=== PATIENT | male | born 1960 | race Caucasian/White ===

== ENCOUNTER 2019-05-28 12:00 | Emergency (ER) | payer OTHER, SELFPAY ==
--- NOTE | ~2019-05-28 | XR_ITS ---
EXAMINATION: XR chest 2V DATE: 05/28/2019 13:20 INDICATION: Chest pain, shortness of breath and dizziness TECHNIQUE: frontal and lateral views of the chest were obtained. COMPARISON: None FINDINGS: The lungs are clear with no focal airspace opacities, pulmonary edema, pleural effusion or pneumothor ax. The cardiomediastinal silhouette is normal. Mild thoracic spondylosis. IMPRESSION: 1. No acute cardiopulmonary disease. Reviewed, dictated and finalized at location A. DOWN MATCHER
[2019-05-28 12:31] VITALS: BP 149/99; PULSE 100; RESP 22; TEMP 36.5; O2SAT 99
--- NOTE | 2019-05-28 12:43 | ECG_ITS ---
Measurements Intervals [place] Rate: 97 P: 65 HI: 156 QRS: 57 QRSD: 84 T: 54 QT: 354 QTc: 451 Interpretive Statements SINUS RHYTHM VOLTAGE CRITERIA FOR LVH MINIMAL Q WAVES- ANTEROLATERAL LEADS BORDERLINE ECG Electronically Signed On 05-28-2019 14:52:06 CUPOLA HOIST OPERATOR by Alphonso Cagle D.O.
--- NOTE | 2019-05-28 12:58 | ED.SYNCOPE ---
HPI - Syncope General Chief Complaint: Syncope Stated Complaint: dizzy/syncopal episode Time Seen by Provider: 05/28/19 12:50 Source: patient Mode of arrival: ambulatory Limitations: no limitations History of Present Illness HPI narrative: A 58 y/o male pt presents to the ED, with c/o near syncopal episode x2 that occurred twice today. Pt states that he was leaving the gym today at 930AM when he bent his neck backwards he notes having a hot flash, dry mouth, nauseous, blurry vision, seeing dark and red spots and felt like he was going to pass out. He states another episode happened again when leaving his bathroom at home. Pt notes pain, pressure and swelling to the back of his neck that worsens when he tilts his head backwards, and states that he thinks this is what brings on the near syncopal episodes. He notes having a similar episode to this 2 years ago, but is unsure of the Dx. Pt also notes a TYSON x 2 weeks and swelling and pain that he describes as soreness to his lt chest, and LUE. He denies cough, congestion, fever, V/D, or change in appetite. Pt notes that he was Dx with a compression fracture x 2 months ago. He also notes a PMHx of COPD, and emphysema. He notes an allergy to Meloxicam. complaint: almost passed out Onset (ago): hour(s) (3) Witnessed: Yes - by Bystander Context: other (tilting head backwards) Current symptoms: headache and other (swelling, pain, pressure to back of neck) Related Data Allergies Allergy/AdvReac Type Severity Reaction Status Date / Time No Known Allergies Allergy Verified 08/10/16 13:20 Review of Systems Review of Systems: All systems reviewed & are unremarkable except as noted in HPI and below Constitutional: Constitutional: Denies fever(s), Reports headache(s) (x 2 weeks) and Reports other (hot flash during episode) Eyes: Eyes: Reports blurry vision (during episode) and Reports spots in vision (during episode) ENT: Reports dry mouth (during episode) Cardiovascular: Cardiovascular: Reports chest pain (lt chest soreness) Respiratory: Respiratory: Denies chest congestion and Denies cough Gastrointestinal: Gastrointestinal: Denies diarrhea, Reports nausea (during episode), Denies vomiting and Denies other (change in appetite) Musculoskeletal: Musculoskeletal: Reports neck pain (pain, pressure, swelling to back of neck) and Reports other (soreness to LUE) Neurologic: Reports other (near syncopal episode) [facility] Past Medical History Medical History (Updated 05/28/19 @ 15:57 by Alexx Weiss Streetcar) Hypertension Melanoma Surgical History Surgical History (Updated 05/28/19 @ 15:57 by Alexx [address]) History of neck surgery Social History Social History (Updated 05/28/19 @ 15:57 by Alexx [address]) Smoking status: Smoker, status unknown Tobacco type: cigarettes Exam Const: General: healthy appearing, no acute distress and alert Orientation/consciousness: patient oriented x3 HENMT: Mouth: Yes dry mucous membranes Resp: Effort & Inspection: normal respiratory effort Auscultation: clear to auscultation bilaterally Cardio: Rate: tachycardic Rhythm: regular rhythm GI: Other: NDNT Back/Spine/Pelvis: Thoracic/Lumbar Spine: other (tenderness and spasm in right trapezius) Skin: General skin exam: normal color Rashes: no rashes Neuro: General: patient oriented x3, moves all extremities and no focal motor deficits Speech: normal speech Extrem: General: no edema Psych: Affect: Anxious affect present Course Vital Signs Vital signs: Vital Signs Temperature 36.5 C 05/28/19 12:31 Pulse Rate 100 05/28/19 12:31 Respiratory Rate 22 H 05/28/19 12:31 Blood Pressure 149/99 H 05/28/19 12:31 Pulse Oximetry 99 05/28/19 12:31 Temperature 36.5 C 05/28/19 12:31 Pulse Rate 79 05/28/19 15:48 Respiratory Rate 17 05/28/19 15:48 Blood Pressure 142/79 H 05/28/19 15:48 Pulse Oximetry 100 05/28/19 15:48 Procedures Other Pr
[2019-05-28 13:11] LABS: Basophils Percent Auto 0.3 % (0.2-1.2); Eosinophils Percent Auto 0.6 % (0-4.4); Hematocrit 42.5 % (42.0-52.0); Hemoglobin 14.5 g/dL (14.0-18.0); Immature Granulocyte Absolute 0.02 K/mm3 (0.00-0.031); Immature Granulocyte Percent A 0.3 % (0-0.5); Lymphocytes Absolute Auto 1.01 K/mm3 (0.9-3.2); Lymphocytes Percent Auto 14.5 % (18.3-44.2); Mean Corpuscular HGB Conc 34.1 g/dl (32-36); Mean Corpuscular Hemoglobin 29.1 pg (26-34); Mean Corpuscular Volume 85.2 fl (80-100); Mean Platelet Volume 9.4 fl (7.4-10.4); Monocytes Absolute Auto 0.6 K/mm3 (0.1-0.6); Monocytes Percent Auto 9.1 % (2.6-8.5); Neutrophils Absolute Auto 5.2 K/mm3 (1.3-6.7); Neutrophils Percent Auto 75.2 % (45.5-73.1); Platelet Count Result 323 k/mm3 (150-375); Red Blood Count 4.99 M/mm3 (4.6-6.20); Red Cell Distribution Width 12.7 % (11.5-14.5)
[2019-05-28 13:21] LABS: INR 0.9; Prothrombin Time 11.9 Seconds (11.1-14.7)
[2019-05-28 13:22] LABS: Partial Thromboplastin Time 25.5 SECONDS (22.3-36.8)
[2019-05-28 13:27] LABS: Blood Urea Nitrogen 8 mg/dL (9-20); Calcium 9.5 mg/dL (8.4-10.2); Carbon Dioxide 24 mmol/L (22-30); Chloride 94 mmol/L (98-107); Estimated CRCL calculation 110 ml/min; Estimated Glomerular Filt Rate > 60; Glucose 117 mg/dL (75-110); Potassium 3.8 mmol/L (3.4-5.0); Sodium 131 mmol/L (137-145)
[2019-05-28 13:49] LABS: Troponin I < 0.012 ng/mL (0.000-0.034)
[2019-05-28 13:52] VITALS: BP 134/86; PULSE 103
[2019-05-28 13:53] VITALS: BP 134/96; PULSE 105
[2019-05-28 13:54] VITALS: BP 142/95; PULSE 115
[2019-05-28] MEDS: SODIUM CHLORIDE 0.9% IV 1,000 ML 999 ML IV CONT (13:57)
[2019-05-28] MEDS: LIDOCAINE HCL 1% LOCAL INJ 20 ML VIAL 3 ML INFILTRATE (15:11)
[2019-05-28] MEDS: TRIAMCINOLONE ACET INJ 40 MG/ML VIAL IM (15:11)
--- NOTE | 2019-05-28 15:11 | PC.NURSE ---
Kenalog [address] Medellin into upper middle back just inferior to neck after injection of Lidocaine. No complications noted during or after injections.
[2019-05-28 15:48] VITALS: BP 142/79; PULSE 79; RESP 17; O2SAT 100
== END 2019-05-28 15:49 | disposition home or self-care (01) ==
PROVIDERS: Emergency Medicine; Emergency Provider Emergency Medicine; PCP Family Medicine
DX: R55 Syncope and collapse (principal); E86.0 Dehydration; M54.2 Cervicalgia
CPT/HCPCS: 20552; 36415; 71046; 80048; 84484; 85025; 85610; 85730; 93005; 96361; 96372; 96374; 99284; J3301; J3360; J7030

== ENCOUNTER 2020-04-07 12:05 | Emergency (ER) | payer OTHER, SELFPAY ==
--- NOTE | ~2020-04-07 | XR_ITS ---
EXAMINATION: XR chest 2V DATE: 04/07/2020 12:56 INDICATION: Chest pain. TECHNIQUE: Frontal and lateral views of the chest were obtained. COMPARISON: Chest 2 views 05/28/2019 FINDINGS: The chest demonstrates clear lungs without pneumonia, pleural effusion, or pneumothorax. Th e heart size is normal. IMPRESSION: 1. No acute cardiopulmonary disease. Reviewed, dictated and finalized at location A. PMENT OPERATOR
--- NOTE | ~2020-04-07 | CT_ITS ---
EXAMINATION: CTA chest PE protocol DATE: 04/07/2020 15:11 INDICATION: Chest pain. Dyspnea. TECHNIQUE: Computed tomography angiography (CTA) of the chest was performed with 100 mL Omnipaque-350 intravenous contrast timed to evaluate the pulmonary arteries. Coronal maximum intensity projection 3D-reconstructions were created by the technologist. Automated exposure control and iterative reconst ruction technique were employed. The dose-length product was 558.01 mGy-cm. COMPARISON: Chest 2 views 04/07/2020 FINDINGS: There is moderate emphysema. There is mild dependent atelectasis bilaterally. There are tra ce pleural effusions. The heart size is normal. No pericardial effusion. There is no pulmonary embolu s. There is diffuse hepatic steatosis. There is mild thoracic spondylosis. There is mild chronic heig ht loss of multiple lower thoracic vertebral bodies. IMPRESSION: 1. No pulmonary embolus. 2. Moderate emphysema. 3. Diffuse hepatic steatosis. Reviewed, dictated and finalized at location A. PROTECTOR
--- NOTE | 2020-04-07 12:08 | ECG_ITS ---
Measurements Intervals [place] Rate: 67 P: 67 TX: 146 QRS: 62 QRSD: 90 T: 63 QT: 356 QTc: 378 Interpretive Statements SINUS RHYTHM WITH SINUS ARRHYTHMIA PEAKED T WAVES- CONSIDER HYPERKALEMIA OR ISCHEMIA BASELINE ARTIFACT- I, AVR, AVL ABNORMAL ECG Electronically Signed On 04-07-2020 14:36:27 CLOTHING BUSHELER by Alphonso Cagle D.O.
[2020-04-07 12:10] VITALS: BP 125/84; PULSE 72; RESP 18; TEMP 36.4; O2SAT 100
[2020-04-07 12:28] LABS: Basophils Absolute Auto 0.1 K/mm3 (0.0-0.1); Basophils Percent Auto 0.9 % (0.2-1.2); Eosinophils Absolute Auto 0.2 K/mm3 (0-0.3); Eosinophils Percent Auto 2.9 % (0-4.4); Hematocrit 44.9 % (42.0-52.0); Hemoglobin 15.3 g/dL (14.0-18.0); Immature Granulocyte Absolute 0.02 K/mm3 (0.00-0.031); Immature Granulocyte Percent A 0.4 % (0-0.5); Lymphocytes Absolute Auto 1.32 K/mm3 (0.9-3.2); Lymphocytes Percent Auto 23.8 % (18.3-44.2); Mean Corpuscular HGB Conc 34.1 g/dl (32-36); Mean Corpuscular Hemoglobin 30.2 pg (26-34); Mean Corpuscular Volume 88.6 fl (80-100); Mean Platelet Volume 10.2 fl (7.4-10.4); Monocytes Absolute Auto 0.5 K/mm3 (0.1-0.6); Monocytes Percent Auto 8.1 % (2.6-8.5); Neutrophils Absolute Auto 3.6 K/mm3 (1.3-6.7); Neutrophils Percent Auto 63.9 % (45.5-73.1); Platelet Count Result 302 k/mm3 (150-375); Red Blood Count 5.07 M/mm3 (4.6-6.20); Red Cell Distribution Width 13.1 % (11.5-14.5); White Blood Count 5.6 K/mm3 (4.5-10.0)
[2020-04-07 12:39] LABS: Anion Gap 4 mmol/L (8-16); Blood Urea Nitrogen 18 mg/dL (9-20); Calcium 9.2 mg/dL (8.4-10.2); Carbon Dioxide 31 mmol/L (22-30); Chloride 102 mmol/L (98-107); Estimated CRCL calculation 86 ml/min; Estimated Glomerular Filt Rate > 60; Glucose 102 mg/dL (75-110); Potassium 4.2 mmol/L (3.4-5.0); Sodium 137 mmol/L (137-145)
[2020-04-07 12:40] LABS: INR 0.9; Prothrombin Time 12.8 Seconds (11.1-14.7)
[2020-04-07 12:41] LABS: Partial Thromboplastin Time 22.5 SECONDS (22.3-36.8)
[2020-04-07 12:52] LABS: Troponin I < 0.012 ng/mL (0.000-0.034)
[2020-04-07 13:29] VITALS: BP 132/78; PULSE 77; O2SAT 98
[2020-04-07] MEDS: ASPIRIN 81 MG CHEWABLE TABLET 324 MG PO (13:39)
[2020-04-07] MEDS: SODIUM CHLORIDE 0.9% IV 1,000 ML 999 ML IV CONT (14:12)
[2020-04-07 14:50] LABS: D Dimer 0.53 ug/mL (<0.48)
[2020-04-07 15:50] VITALS: PULSE 60; RESP 18
[2020-04-07] MEDS: IPRATROPIUM BR 0.02% INH SOLN 0.5 MG/2.5 ML VIAL INHALATION (15:50)
[2020-04-07] MEDS: ALBUTEROL SULFATE NEB 2.5 MG/0.5 ML INH 5 MG INHALATION (15:50)
[2020-04-07 15:55] LABS: Troponin I < 0.012 ng/mL (0.000-0.034)
[2020-04-07 15:57] VITALS: PULSE 73; RESP 18
--- NOTE | 2020-04-07 16:10 | ED.CHESTPAIN ---
HPI - Chest Pain General Chief Complaint: Chest Pain Stated Complaint: sob/palpitations Time Seen by Provider: 04/07/20 13:41 Source: RN notes reviewed History of Present Illness HPI narrative: Patient presents to emergency department from home for heart palpitations. Patient states symptoms been ongoing for the past 2 days. States at times it feels like his heart is working too hard and will pump harder at times he also notes intermittent feelings of shortness of breath he denies any fevers or chills chest pain abdominal pain nausea vomiting or any other symptoms. He states that his Adderall was just increased 3 days ago and the symptoms began the day after his Adderall was increased Related Data Home Medications Medication Instructions Recorded Confirmed albuterol sulfate 1 puff INHALATION QID 04/07/20 dextroamphetamine-amphetamine 30 mg PO DAILY 04/07/20 [Adderall] diclofenac sodium 75 mg PO BID 04/07/20 fluticasone propion-salmeterol 1 inh INHALATION BID 04/07/20 omeprazole 40 mg PO DAILY 04/07/20 tamsulosin [Flomax] 0.8 mg PO DAILY 04/07/20 Allergies Allergy/AdvReac Type Severity Reaction Status Date / Time meloxicam AdvReac Hallucinati Verified 04/07/20 12:15 ng Review of Systems Review of Systems: Narrative: Gen.: Denies fevers or chills Eyes: Denies eye pain or visual change ENT: Denies congestion Respiratory: Reports shortness of breath CV: See HPI GI: Denies abdominal pain nausea, emesis or diarrhea Musculoskeletal: Denies back pain or muscle pain Neuro: Denies numbness, tingling, weakness or focal weakness Skin: Denies rash Except as documented, all other systems reviewed and negative REPLACED BY [facility] Past Medical History Medical History Hypertension Melanoma Surgical History Surgical History (Updated 05/28/19 @ 15:57 by Alexx Weiss [facility]) History of neck surgery Social History Social History Smoking status: Smoker, status unknown Tobacco type: cigarettes Gender identity (if verbalized by the patient): Male Exam Narrative: Exam Narrative: APPEARANCE: No acute distress, nontoxic, resting in bed EYES: EOMI HEENT: Normocephalic, atraumatic, OMM RESPIRATORY: No respiratory distress Clear to auscultation bilaterally with no rhonchi wheezing or rales. CARDIOVASCULAR: Regular rate and rhythm without murmurs rubs or gallops. ABDOMINAL: Soft, nontender, nondistended, no rebound or guarding MUSCULOSKELETAl: Moves all extremities. No clubbing, cyanosis or edema. NEURO: Awake and alert. Following commands, speech normal, no focal deficits SKIN:: Warm, dry. No rashes lesions or abrasions PSYCHIATRIC: Normal affect/mood, Course Course Emergency Course: Patient states he does feel like shortness of breath is improved following breathing treatment. States he does have an inhaler at home for COPD Discussed with patient results of workup and diagnosis. Discussed need for follow-up with primary care, proper use of medication, and reasons to return to the emergency department. Patient understands and agrees to current treatment plan Vital Signs Vital signs: Vital Signs Temperature 97.5 F L 04/07/20 12:10 Pulse Rate 72 04/07/20 12:10 Respiratory Rate 18 04/07/20 12:10 Blood Pressure 125/84 04/07/20 12:10 Pulse Oximetry 100 04/07/20 12:10 Temperature 97.5 F L 04/07/20 12:10 Pulse Rate 73 04/07/20 15:57 Respiratory Rate 18 04/07/20 15:57 Blood Pressure 132/78 04/07/20 13:29 Pulse Oximetry 98 04/07/20 13:29 MDM - Chest Pain Lab Data Result diagrams: 04/07/20 12:17 04/07/20 12:17 Labs: Lab Results 04/07/20 04/07/20 04/07/20 Range/Units 12:16 12:17 12:17 WBC 5.6 (4.5-10.0) K/mm3 RBC 5.07 (4.6-6.20) M/mm3 Hgb 15.3 (14.0-18.0) g/dL Hct 44.9 (42.0-52.0) % MCV 88.6 (80-100) fl MCH
[2020-04-07 16:50] VITALS: BP 137/93; PULSE 69; RESP 18; O2SAT 100
== END 2020-04-07 16:52 | disposition home or self-care (01) ==
PROVIDERS: Emergency Provider Emergency Medicine; PCP Family Medicine
DX: R00.2 Palpitations (principal); I10 Essential (primary) hypertension; Z85.820 Personal history of malignant melanoma of skin; K76.0 Fatty (change of) liver, not elsewhere classified; J43.9 Emphysema, unspecified; R94.31 Abnormal electrocardiogram [ECG] [EKG]
CPT/HCPCS: 36415; 71046; 71275; 80048; 84484; 85025; 85380; 85610; 85730; 93005; 94640; 96360; 99284; A9270; J7030; Q9967

== ENCOUNTER 2022-05-18 14:43 | Emergency (ER) | payer OTHER, SELFPAY ==
[2022-05-18 14:57] VITALS: BP 133/84; PULSE 103; RESP 18; TEMP 36.8; O2SAT 99
--- NOTE | 2022-05-18 15:36 | ED.WOUNDLAC ---
HPI - Wound/Laceration General Chief Complaint: Wound/Laceration Stated Complaint: lt hand laceration Time Seen by Provider: 05/18/22 15:38 Source: patient Mode of arrival: ambulatory Limitations: no limitations History of Present Illness HPI narrative: Is a 61 year-old male who presents with laceration to left palm. Patient was handling a broken light bulb when shard of glass lacerated palm. States he took the glass out and held pressure on the wound. He then stated he let go and the wound started bleeding again. Denies any numbness or weakness to the hand and digits. Related Data Home Medications Medication Instructions Recorded Confirmed albuterol sulfate 90 mcg/actuation 1 puff inhalation QID 04/07/20 05/18/22 aerosol inhaler fluticasone 113mcg-salmeterol 1 inh inhalation BID 04/07/20 05/18/22 14mcg/actuation breath act,powder sensor omeprazole 40 mg capsule,delayed 40 mg PO DAILY 04/07/20 05/18/22 release tamsulosin 0.4 mg capsule (Flomax) 0.8 mg PO DAILY 04/07/20 05/18/22 Allergies Allergy/AdvReac Type Severity Reaction Status Date / Time meloxicam AdvReac Hallucinati Verified 04/07/20 12:15 ng Review of Systems Review of Systems: CONSTITUTIONAL: Denies malaise, chills, sweats, or fever. EYES: Denies visual changes, redness, or discharge. ENT: Denies rhinorrhea, congestion, sinus pain, otalgia or sore throat. CARDIOVASCULAR: Denies chest pain, palpitations, or edema. RESPIRATORY: Denies cough or dyspnea. SKIN: Denies rash or itching. Reports laceration to left palm MUSCULOSKELETAL: Denies back pain, joint pain, or myalgia. NEUROLOGIC: Denies numbness, weakness, or headache. All systems reviewed & are unremarkable except as noted in HPI and below PMFSH Past Medical History Medical History Hypertension Melanoma Surgical History Surgical History (Updated 05/28/19 @ 15:57 by Alexx Weiss [facility]) History of neck surgery Social History Social History Smoking status: Smoker, status unknown Tobacco type: cigarettes Gender identity (if verbalized by the patient): Male Comments At time of signature, agree with nursing past medical, surgical, social and family history. There is no relevant family history pertinent to the presenting complaint. Exam Narrative: GENERAL: Well-appearing, well-nourished, and in no acute distress. HEAD: Normocephalic, atraumatic. EYES: PERRLA, conjunctivae clear, and EOMI. ENT: Nares clear, no rhinorrhea or epistaxis. Mucous membranes moist. NECK: Supple. CHEST: No respiratory distress. Clear to auscultation. No bony deformities, no asymmetry. Speaks in full sentences. HEART: Regular rate and rhythm EXTREMITIES: Normal range of motion. No edema. Normal strength and sensation. SKIN: Warm, dry, no rash. 1 cm laceration into subcutaneous tissue to palmar aspect of left hand, no surrounding erythema, edema, induration. Capillary refill less than 2 seconds on fingers NEURO: Alert and oriented x3. No focal deficits. Course Course Emergency Course: Patient is aware of diagnosis, understands and agrees to treatment plan. Anticipatory guidance given. Patient agrees to follow-up as directed and is aware of reasons to seek care at the emergency department. Portions of this record may have been created with voice recognition software Level of Care: Express Care Visit Vital Signs Vital signs: Vital Signs Temperature 36.8 C 05/18/22 14:57 Pulse Rate 103 H 05/18/22 14:57 Respiratory Rate 18 05/18/22 14:57 Blood Pressure 133/84 05/18/22 14:57 Pulse Oximetry 99 05/18/22 14:57 Oxygen Delivery Room Air 05/18/22 14:57 Temperature 36.8 C 05/18/22 14:57 Pulse Rate 103 H 05/18/22 14:57 Respiratory Rate 18 05/18/22 14:57 Blood Pressure 133/84 05/18/22 14:57 Pulse Oximetry 99 05/18/22 14:57 Oxygen Deliver
[2022-05-18] MEDS: ACETAMINOPHEN 500 MG TABLET 1000 MG PO (15:43)
[2022-05-18] MEDS: LIDOCAINE, EPINEPHRINE, TETRACAINE VISCOUS SOLN 3 ML TOPICAL (15:44)
== END 2022-05-18 16:19 | disposition home or self-care (01) ==
PROVIDERS: Emergency Provider Nurse Practitioner Family; PCP Family Medicine
DX: S61.412A Laceration without foreign body of left hand, initial encounter (principal); W25.XXXA Contact with sharp glass, initial encounter; I10 Essential (primary) hypertension; Z85.820 Personal history of malignant melanoma of skin
CPT/HCPCS: 12001; 99212; A9270; G0463

== ENCOUNTER 2023-05-03 08:04 | Emergency (ER) | payer OTHER, SELFPAY ==
[2023-05-03 08:30] VITALS: BP 146/84; PULSE 95; RESP 18; TEMP 36.7; O2SAT 97
--- NOTE | 2023-05-03 08:41 | ED.URI ---
HPI - URI/Sore Throat General Chief Complaint: Upper Respiratory Infection Stated Complaint: rt earache,congestion Time Seen by Provider: 05/03/23 08:41 Source: patient, RN notes reviewed and old records reviewed Mode of arrival: ambulatory Limitations: no limitations History of Present Illness HPI Narrative: 62-year-old male presents to the [facility] with right ear pain, runny nose and sinus congestion for 3 days. Has taken Tylenol for his discomfort, no other treatment prior to arrival Denies fevers Denies any other symptoms Treatments prior to arrival: acetaminophen Related Data Home Medications Medication Instructions Recorded Confirmed albuterol sulfate 90 mcg/actuation 1 puff inhalation QID 04/07/20 05/03/23 aerosol inhaler fluticasone 113mcg-salmeterol 1 inh inhalation BID 04/07/20 05/03/23 14mcg/actuation breath act,powder sensor omeprazole 40 mg capsule,delayed 40 mg PO DAILY 04/07/20 05/03/23 release tamsulosin 0.4 mg capsule (Flomax) 0.8 mg PO DAILY 04/07/20 05/03/23 cholecalciferol (vitamin D3) 25 25 mcg PO DAILY 05/03/23 05/03/23 mcg (1,000 unit) tablet cyanocobalamin (vitamin B-12) 100 100 mcg PO DAILY 05/03/23 05/03/23 mcg tablet Allergies Allergy/AdvReac Type Severity Reaction Status Date / Time meloxicam AdvReac Hallucinati Verified 05/03/23 08:43 ng Review of Systems Review of Systems: All systems reviewed & are unremarkable except as noted in HPI and below Constitutional: Constitutional: Reports no additional constitutional complaints Eyes: Eyes: Reports no additional eye complaints ENT: Reports as per HPI, Reports otalgia (right), Reports nasal congestion and Reports nasal discharge Cardiovascular: Cardiovascular: Reports no additional cardiovascular complaints, Denies chest pain and Denies dyspnea Respiratory: Respiratory: Reports no additional respiratory complaints, Denies chest congestion, Denies cough and Denies dyspnea Gastrointestinal: Gastrointestinal: Reports no additional gastrointestinal complaints, Denies abdominal pain, Denies nausea and Denies vomiting Musculoskeletal: Musculoskeletal: Reports no additional musculoskeletal complaints Integumentary/Breasts: Skin/Breast: Reports system reviewed and no additional complaints, except as docu Neurologic: Reports system reviewed and no additional complaints, except as documented Psychiatric: Psychiatric: Reports no additional psychiatric complaints Allergic/Immunologic: Allergic/Immunologic: Reports no additional allergic/immunologic complaints PMFSH Past Medical History Medical History Hypertension Melanoma Surgical History Surgical History History of neck surgery Social History Social History Smoking status: Smoker, status unknown Tobacco type: cigarettes Gender identity (if verbalized by the patient): Male Comments At the time of my signature, I reviewed and agree with the nursing past medical, surgical, social, and family history. There is no relevant family history pertinent to the patient complaint. Exam Const: General: cooperative, healthy appearing, comfortable, no acute distress, well developed, alert and well nourished Nutritional Appearance: well nourished Orientation/consciousness: patient oriented x3 Limitations: no limitations HENMT: Head: normal to inspection Ears: hearing grossly normal bilaterally, external ears normal, EAC's normal, mastoids normal, no periauricular adenopathy and TM abnormal bulging on the right and wth effusion serous bilateral; not erythematous Face/Nose/Sinus: Normal external nose present, Normal nares present, Normal nasal mucous membranes and turbinates present, Nasal discharge present clear bilateral, normal facial exam and face symmetric Face and sinus: normal facial exam and face
== END 2023-05-03 09:20 | disposition home or self-care (01) ==
PROVIDERS: Emergency Provider Nurse Practitioner; PCP Family Medicine
DX: H65.03 Acute serous otitis media, bilateral (principal); J01.90 Acute sinusitis, unspecified; Z20.822 Contact with and (suspected) exposure to COVID-19; I10 Essential (primary) hypertension; Z85.820 Personal history of malignant melanoma of skin
CPT/HCPCS: 87426; 87804; 99213; G0463